=== PATIENT | male | born 1955 | race Caucasian/White ===

== ENCOUNTER → 2017-02-24 | Outpatient (CLI) | payer BC ==
[2017-02-24 18:44] LABS: BASO % 0.3 %; BASO ABS # 0.02 K/uL (0-0.2); COMPLETE YES; EOS % 1.5 %; HEMATOCRIT 45.4 % (42-52); IG% 0.1 %; LYMPH % 23.4 %; LYMPH ABS # 1.72 K/uL (1.2-3.4); MEAN CELL VOLUME 86.1 fL (80-100); MEAN CORPUSCULAR HEMOGLOBIN 28.7 pg (25-34); MEAN CORPUSCULAR HGB CONC 33.3 g/dl (32-36); MEAN PLATELET VOLUME 11.9 fL (7.4-10.4); NEUT % 65.7 %; PLATELET COUNT 151 K/uL (130-400); RED BLOOD COUNT 5.27 M/uL (4.7-6.1); WHITE BLOOD COUNT 7.35 K/uL (4.8-10.8)
[2017-02-24 19:05] LABS: ALT/SGPT 26 U/L (12-78); BLOOD UREA NITROGEN 21 mg/dl (7-18); BUN/CREATININE RATIO 16.2 (10-20); CALCIUM 9.3 mg/dl (8.5-10.1); CARBON DIOXIDE 32 mmol/L (21-32); CHLORIDE 107 mmol/L (98-107); GLUCOSE 109 mg/dl (70-99); POTASSIUM 4.9 mmol/L (3.5-5.1); SODIUM 144 mmol/L (136-145)
[2017-02-24 19:08] LABS: ALB/GLOB RATIO 1.2 (0.9-2); ALKALINE PHOSPHATASE 80 U/L (45-117); AST/SGOT 15 U/L (15-37); CHOLESTEROL 127 mg/dl (0-200); CHOLESTEROL/HDL RATIO 2.8; HDL CHOLESTEROL 45 mg/dl; LDL CHOLESTEROL CALCULATED 50 mg/dl; TRIGLYCERIDES 160 mg/dl (0-150); VERY LOW DENSITY LIPOPROT CALC 32 mg/dl
[2017-02-25 05:53] LABS: ESTIMATED AVERAGE GLUCOSE 140 mg/dl; HA1C FLAG Normal (Normal)
== END | disposition home or self-care (01) ==
LOC: C.LABSPEC 18:07
PROVIDERS: ATTEND Family Medicine
DX: E11.9 Type 2 diabetes mellitus without complications (principal); E78.2 Mixed hyperlipidemia; I25.10 Atherosclerotic heart disease of native coronary artery without angina pectoris

== ENCOUNTER → 2017-09-15 | Outpatient (CLI) | payer BC ==
[2017-09-15 18:24] LABS: BASO % 0.3 %; BASO ABS # 0.02 K/uL (0-0.2); COMPLETE YES; EOS % 1.8 %; HEMATOCRIT 44.1 % (42-52); IG% 0.2 %; LYMPH % 28.3 %; LYMPH ABS # 1.77 K/uL (1.2-3.4); MEAN CELL VOLUME 86.6 fL (80-100); MEAN CORPUSCULAR HEMOGLOBIN 30.5 pg (25-34); MEAN CORPUSCULAR HGB CONC 35.1 g/dl (32-36); MONO % 7.8 %; NEUT % 61.6 %; PLATELET COUNT 136 K/uL (130-400); RED BLOOD COUNT 5.09 M/uL (4.7-6.1); WHITE BLOOD COUNT 6.26 K/uL (4.8-10.8)
[2017-09-15 18:43] LABS: BLOOD UREA NITROGEN 19 mg/dl (7-18); BUN/CREATININE RATIO 17.1 (10-20); CALCIUM 9.5 mg/dl (8.5-10.1); CARBON DIOXIDE 29 mmol/L (21-32); CHLORIDE 106 mmol/L (98-107); GLUCOSE 114 mg/dl (70-99); POTASSIUM 4.2 mmol/L (3.5-5.1); SODIUM 141 mmol/L (136-145)
[2017-09-15 18:48] LABS: ALB/GLOB RATIO 1.3 (0.9-2); ALKALINE PHOSPHATASE 69 U/L (45-117); ALT/SGPT 24 U/L (12-78); AST/SGOT 16 U/L (15-37)
[2017-09-16 07:38] LABS: ESTIMATED AVERAGE GLUCOSE 143 mg/dl; HA1C FLAG Normal (Normal)
--- NOTE | 2017-09-19 11:13 | CODING QUERY NO DIAGNOSIS ---
TREATMENT RENDERED WITHOUT A DIAGNOSIS 55 To promote full compliance with coding requirements relating to patient care, physician participation is requested in all cases of clay preparation supervisor uncertainty. Please assist us with providing a diagnosis/symptom for the test(s) below: A diagnosis/symptom was not documented on your Order. A valid diagnosis/symptom is required to bill all insurances. Please remember that we are unable to code a diagnosis of rule out, probable, possible, questionable, or suspected. DOS 09/15/17 Tests that require a diagnosis: * CBC W/AUTO DIFF DIAGNOSIS: * COMP METABOLIC DIAGNOSIS: * HEMOGLOBIN A1C DIAGNOSIS: Provider Signature: Date: Thank you Criselda [facility] Information Management Once completed, please kindly fax back to [phone] For questions please call [phone]
== END | disposition home or self-care (01) ==
LOC: C.LABSPEC 17:58
PROVIDERS: ATTEND Family Medicine
DX: E11.9 Type 2 diabetes mellitus without complications (principal)